=== PATIENT | male | born 1955 | race Caucasian/White ===

== ENCOUNTER 2024-04-02 09:43 | Outpatient (OUT) | payer MEDICARE, SELFPAY ==
--- NOTE | 2024-04-02 | XR_ITS ---
The [address] [address] Patient Name: MIQUEL NIEVES MRN: [id number] date: 1955 Sex: M Assigned Patient Location: Current Patient Location: Accession/Order Number: [id number] Exam Date: 04/02/2024 10:00 Report Date: 04/03/2024 07:19 At the request of: GARRY HINTON Procedure: XR foot ADAM min 3V EXAMINATION: XR foot ADAM min 3V HISTORY: BILATERAL FOOT PAIN COMPARISON: No relevant comparison available. FINDINGS: RIGHT FINDINGS: BONES: Normal. No significant arthropathy or acute abnormality. SOFT TISSUES: Negative. No visible soft tissue swelling. OTHER: Negative. LEFT FINDINGS: BONES: Normal. No significant arthropathy or acute abnormality. SOFT TISSUES: Negative. No visible soft tissue swelling. OTHER: Negative. XR/XR foot ADAM min 3V IMPRESSION: No acute radiographic abnormality Electronically authenticated by: MONSTER HENSON Date: 04/03/2024 07:19
== END 2024-04-02 09:44 | disposition home or self-care (01) ==
LOC: EC 09:44
PROVIDERS: Visit Provider Podiatrist Foot & Ankle Surgery
DX: M79.672 Pain in left foot (principal); M79.671 Pain in right foot
CPT/HCPCS: 73630

== ENCOUNTER 2024-04-08 14:56 | Outpatient (RCR) | payer MEDICARE, SELFPAY | END 2024-04-09 12:08 | disposition home or self-care (01) | LOC: PT 14:56 | PROVIDERS: Visit Provider Podiatrist Foot & Ankle Surgery | DX: M25.871 Other specified joint disorders, right ankle and foot (principal) ==